=== PATIENT | male | born 1940 | race Caucasian/White ===

== ENCOUNTER → 2018-06-20 | Outpatient (CLI) | payer MEDICARE ==
--- NOTE | 2018-06-20 15:11 | RAD ---
Abdomen, 2 views, 06/20/2018: HISTORY: Abdominal pain There is a moderate amount gas in large and small bowel in a nonspecific pattern. A couple of small scattered air-fluid levels are noted. No free air is seen in the abdomen. There is no evidence organomegaly. Lower pelvic calcifications are probably phleboliths. There is a mild thoracolumbar scoliosis with moderate multilevel degenerative change. Incidental note is made of a small focal opacity projected over the right midlung laterally. Diagnostic considerations include a lung neoplasm, focal infiltrate or scarring. IMPRESSION: 1. Increased gas in large and small bowel with scattered air-fluid level suggesting a mild ileus. 2. Suspicious right lung opacity. CT scanning is suggested for further evaluation, if clinically indicated. Electronically signed by: Andrew Martin MD (06/20/2018 3:08 PM) [facility]
== END | disposition home or self-care (01) ==
LOC: PMG 14:13
PROVIDERS: ATTEND Physician Assistant
DX: R10.84 Generalized abdominal pain (principal); M41.85 Other forms of scoliosis, thoracolumbar region
CPT/HCPCS: 74021